=== PATIENT | male | born 1945 | race Caucasian/White ===

== ENCOUNTER 2019-04-23 05:57 | Day surgery (SDC) | payer OTHER, SELFPAY ==
[2019-04-23 06:19] VITALS: BP 128/90; PULSE 82; RESP 18; TEMP 36.7; O2SAT 95
[2019-04-23] MEDS: Lactated Ringers 1,000 ML 80 ML IV (06:28)
[2019-04-23] MEDS: CLINDAMYCIN 600 MG/50 ML BAG 100 MG IVPB (07:27)
[2019-04-23] MEDS: Bupivacaine 0.5% Pres-Free 30 ML VIAL (07:31)
[2019-04-23] MEDS: Lidocaine 1% Multi-Dose 50 ML VIAL (07:31)
[2019-04-23] MEDS: Dexamethasone 4 MG/ML VIAL (07:51)
--- NOTE | 2019-04-23 08:06 | PDOC.DSDIS_ITS ---
Discharge Plan Disposition Patient Disposition: HOME Condition: Good Discharge Details Attending Provider: Eloy Renee Primary Care Provider: None,None Home Meds and New Rx's Prescriptions: Continued budesonide 32 mcg/actuation [place],Non-Aerosol 1 spray INTRANASAL DAILY RF: 0 aspirin 325 mg Tablet 325 mg PO DAILY RF: 0 omeprazole 40 mg Capsule,Delayed Release(Dr/Ec) 40 mg PO DAILY RF: 0 amlodipine 10 mg Tablet 10 mg PO DAILY RF: 0 simvastatin 20 mg Tablet 20 mg PO QPM RF: 0 Calcium 600 + D(3) 600 mg calcium- 200 unit Capsule 1 cap PO DAILY RF: 0 Centrum Silver Men 300-600-300 mcg Tablet 1 tab PO DAILY RF: 0 Discharge Instructions Activity:: Elevate Remove Dressings/Wound Care:: Do Not Remove Shower/Bathe:: Cover Diet:: As Tolerated Discharge Orders Discharge Orders: Discharge Order (Routine); Ordered 04/23/19 Ordered By: Eloy Renee DS: Diagnosis Discharge Diagnosis (1) Hammertoe of second toe of right foot: Status: Acute
[2019-04-23 08:20] VITALS: BP 117/82; PULSE 78; RESP 16; TEMP 36.6; O2SAT 96
[2019-04-23 08:58] VITALS: RESP 16
--- NOTE | 2019-04-23 09:48 | ROE_ITS ---
DATE OF PROCEDURE: April 23, 2019 PREOPERATIVE DIAGNOSIS: Symptomatic right second hammertoe deformity status post previous surgical i nterventions of arthrodesis. POSTOPERATIVE DIAGNOSIS: Same. PROCEDURE: Amputation through the proximal phalanx right second toe. ANESTHESIA: Monitored Anesthesia Care with local block of the second toe utilizing 6 cc's of 50/50 m ixture 1% Lidocaine plain, 0.5% Bupivacaine. SURGEON: Eloy Renee D.P.M. OPERATIVE INDICATIONS: 74-year-old male who had previously undergone arthrodesis of the right second toe at the DIPJ level utilizing a screw. He had developed apparently postoperative complications, h ardware was removed, but the tip of the toe remained exquisitely painful. He's lived with this for a long time, but has reached the point he can no longer wear shoes or ambulate comfortably and he is s eeking a permanent solution to this chronic problem. He was given the option of revision arthroplast y arthrodesis of the digits, but he has opted for an amputation of the toe. Informed consent has bee n obtained. All questions have been answered. He is fully aware of the permanency of the procedure. REPORT OF OPERATION: Fran was brought to the operative suite, placed in the supine position. The r ight foot was prepped and draped in the usual sterile podiatric fashion. Anesthesia being obtained, the right foot was exsanguinated, a well-padded ankle tourniquet inflated 250 mmHg. Attention was directed to the right second toe. Dorsal and plantar flaps were raised so as to afford an amputation. The dorsal flap was raised. The extensor tendon was incised and retracted proximall y. Fusion at the PIPJ level was also noted. The incision is carried down plantarly to complete the plantar flap and the amputation. At this time double-action bone-cutting forceps are used to cut th rough the bone just proximal to the PIPJ. The distal portion of the toe was removed. All rough and bony edges were rasped smooth. Copious irrigation was performed. The extensor flexor tendons were r epaired over the bone stump end-to-end with #3-0 Vicryl and the skin flaps were repaired with simple interrupted suture #4-0 Nylon, as well as a couple of lwa-zppk-djti-far suture for a nice approximati on without any undue tension. Four milligrams of dexamethasone phosphate was infused into the wound. Xeroform, gauze fluff compression dressings were applied. The tourniquet was released at fourteen minutes, vascularity returned to the foot without complication. The patient left the OR with vital s igns stable, vascular status intact. Sharp and sponge counts were correct. He will be followed by bo corado in the office next week. cc: Amadeo Glass M.D.
== END 2019-04-23 09:07 | disposition home or self-care (01) ==
PROVIDERS: Visit Provider Podiatrist
PROC: (CPT 28825; principal; 2019-04-23 07:30)
DX: M20.41 Other hammer toe(s) (acquired), right foot (principal); M96.89 Other intraoperative and postprocedural complications and disorders of the musculoskeletal system; M79.674 Pain in right toe(s); Z98.1 Arthrodesis status; Y83.8 Other surgical procedures as the cause of abnormal reaction of the patient, or of later complication, without mention of misadventure at the time of the procedure; I25.10 Atherosclerotic heart disease of native coronary artery without angina pectoris
CPT/HCPCS: 28825; J1100

== ENCOUNTER 2019-05-28 07:15 | Day surgery (SDC) | payer OTHER, SELFPAY ==
[2019-05-28 07:32] VITALS: BP 112/74; PULSE 82; RESP 18; TEMP 36.7; O2SAT 98
[2019-05-28] MEDS: Lactated Ringers 1,000 ML 80 ML IV (07:52)
[2019-05-28] MEDS: CLINDAMYCIN 600 MG/50 ML BAG 100 MG IVPB (09:15)
[2019-05-28] MEDS: Lidocaine 1% Multi-Dose 50 ML VIAL (09:18)
[2019-05-28] MEDS: Bupivacaine 0.5% Pres-Free 30 ML VIAL (09:18)
[2019-05-28] MEDS: Dexamethasone 4 MG/ML VIAL (10:02)
--- NOTE | 2019-05-28 10:09 | W.PM.DSUDISC ---
Discharge Plan Disposition Patient Disposition: HOME Condition: Good Discharge Details Reason For Visit: removal hardware right great toe Attending Provider: Eloy Renee Primary Care Provider: Amadeo Glass [place] Meds and New Rx's Prescriptions: No Action budesonide 32 mcg/actuation [place],Non-Aerosol 1 spray INTRANASAL DAILY RF: 0 aspirin 325 mg Tablet 325 mg PO DAILY RF: 0 omeprazole 40 mg Capsule,Delayed Release(Dr/Ec) 40 mg PO DAILY RF: 0 amlodipine 10 mg Tablet 10 mg PO DAILY RF: 0 simvastatin 20 mg Tablet 20 mg PO QPM RF: 0 Calcium 600 + D(3) 600 mg calcium- 200 unit Capsule 1 cap PO DAILY RF: 0 Centrum Silver Men 300-600-300 mcg Tablet 1 tab PO DAILY RF: 0 Discharge Instructions Activity:: Activity as Tolerated Remove Dressings/Wound Care:: Do Not Remove Shower/Bathe:: Cover Diet:: Normal Diet Discharge Orders Discharge Orders: Discharge Order (Routine); Ordered 05/28/19 Ordered By: Eloy Renee DS: Diagnosis Discharge Diagnosis (1) Painful orthopaedic hardware: Start date: 05/28/19 Start time: 10:11 Status: Acute
--- NOTE | 2019-05-28 10:12 | PDOC.DSDIS_ITS ---
Discharge Plan Disposition Patient Disposition: HOME Condition: Good Discharge Details Reason For Visit: removal hardware right great toe Attending Provider: Eloy Renee Primary Care Provider: Amadeo Glass [place] Meds and New Rx's Prescriptions: No Action budesonide 32 mcg/actuation [place],Non-Aerosol 1 spray INTRANASAL DAILY RF: 0 aspirin 325 mg Tablet 325 mg PO DAILY RF: 0 omeprazole 40 mg Capsule,Delayed Release(Dr/Ec) 40 mg PO DAILY RF: 0 amlodipine 10 mg Tablet 10 mg PO DAILY RF: 0 simvastatin 20 mg Tablet 20 mg PO QPM RF: 0 Calcium 600 + D(3) 600 mg calcium- 200 unit Capsule 1 cap PO DAILY RF: 0 Centrum Silver Men 300-600-300 mcg Tablet 1 tab PO DAILY RF: 0 Discharge Instructions Activity:: Activity as Tolerated Remove Dressings/Wound Care:: Do Not Remove Shower/Bathe:: Cover Diet:: Normal Diet Discharge Orders Discharge Orders: Discharge Order (Routine); Ordered 05/28/19 Ordered By: Eloy Renee DS: Diagnosis Discharge Diagnosis (1) Painful orthopaedic hardware: Status: Acute
[2019-05-28 10:46] VITALS: BP 103/67; PULSE 68; RESP 16; TEMP 36.6; O2SAT 100
--- NOTE | 2019-05-28 12:18 | ROE_ITS ---
DATE OF PROCEDURE: May 28, 2019 PREOPERATIVE DIAGNOSIS: Symptomatic hardware right first and third toes. POSTOPERATIVE DIAGNOSIS: Same. PROCEDURE: 1. Removal of hardware from the right great toe. 2. Failure to remove second screw from the right great toe and right third toe. SURGEON: Lisset SheehanPLang. ANESTHESIA: General anesthesia administered by Kelly Chow CRNA with local blocks of the first and third toes utilizing 10 cc's 50:50 mixture 1% Lidocaine plain, 0.5% Marcaine plain. OPERATIVE INDICATIONS: Fran is a 74-year-old white male who is experiencing pain due to loosening of a screw at the tip of his right great toe. It's been increasingly uncomfortable; it's beginning to poke through the skin and wants it out. He did make a request that while we were there, if we could remove all the hardware to avoid future interventions that would be his preference. He understands risks and complications of surgery pertaining to pain, scarring, infection, wound dehiscence, inability to remove the hardware, fracture of the toe, ongoing discomfort potentially requiring revisional procedures. Informed consent has been obtained. No promises made to the final outcome of surgery. REPORT OF OPERATION: Fran was brought to the operative suite, placed in the supine position. A time-out was obtained. Team agreed on patient, site, allergies. The right foot was then prepped and draped in the usual sterile podiatric fashion. The right foot was exsanguinated. A well-padded ankle tourniquet inflated 250 mmHg. Anesthesia being obtained, the ankle tourniquet was inflated 250 mmHg. Attention was directed to the right great toe. A fishmouth incision was made at the tip of the toe. The incision was deepened and the screws were immediately identified at the tip and distal medial aspect of the toe. The screw coming out from the distal medial aspect of the great toe had backed out from its original position; it was a little proud and this clearly was a problematic screw for him. The original screw set we obtained from recommendation of his previous surgeon's hospital was incorrect. Fortunately the [employer] screw set, the 2.7 and 3.5 hog driver fit the screw. It was easily inserted and this screw came out with no difficulty. When I went to remove the larger, heavier screw in the central portion of the great toe, it was noted immediately that it is stripped. The screwdriver head went into the hole but there was absolutely no purchase. I did try some gentle compression, a little tapping, to try and create some new purchase edge, but it was not successful. The screw head is noted to be quite flat onto the bone and/or the bone has overgrown along the edges. It was in a good position and I decided it was not his primary cause of pain and that we would just create more difficulty for him trying to remove it. The wound was subsequently copiously irrigated and the incision was closed with simple interrupted suture #3-0 Nylon. Attention was now directed to his right third toe. A fishmouth incision was made over this digit. Dissection was carried down to the tip of the distal phalanx and the screw was encountered. Unfortunately this screw was also stripped. The bone is firmly embedded around the screw head. I did rongeur this off. I used a small osteotome and freed up the edge, but there was absolutely no airplane pilot photogrammetry with the screwdriver. The head is stripped. There was no purchase on the edge of the screw to put needle-nosed pliers to assist in backing this screw out. I decided, since this was not his primary complaint, that we would only do more harm; the potential for fracturing the toe was significant; the concept of over-drilling to remove this screw would have eliminated most of his distal phalanx, a good part of the middle and proximal phalanx, and I felt it was not worth the risk and comorbidities. So based on that, we irrigated this wound and closed it with #3-0 Nylon, simple interrupted suture. Four milligrams of dexamethasone phosphate was infused equally between the two toes. Xeroform was applied, followed by gauze fluff compression dressings. The tourniquet was released at forty minutes with vascularity returning immediately to all toes. Fran left the OR with vital signs stable, vascular status intact. Sharp and sponges counts were correct. Note: A [employer] style 2.7?3.5 screwdriver was to correct instrument for the screws.
== END 2019-05-28 11:10 | disposition home or self-care (01) ==
PROVIDERS: PCP Family Medicine; Visit Provider Podiatrist
PROC: (CPT 20680; principal; 2019-05-28 09:00)
DX: T84.84XA Pain due to internal orthopedic prosthetic devices, implants and grafts, initial encounter (principal); T84.223A Displacement of internal fixation device of bones of foot and toes, initial encounter; M79.671 Pain in right foot
CPT/HCPCS: 20680; J1100; J1885

== ENCOUNTER 2019-10-14 16:04 | Outpatient (REF) | payer OTHER, SELFPAY | END 2019-10-14 16:24 | LOC: LBN 16:04 | PROVIDERS: PCP Family Medicine; Visit Provider Podiatrist | DX: L02.611 Cutaneous abscess of right foot (principal); M86.171 Other acute osteomyelitis, right ankle and foot | CPT/HCPCS: 87077; 87070; 87186; 87205 ==

== ENCOUNTER 2019-10-20 10:47 | Day surgery (SDC) | payer OTHER, SELFPAY ==
[2019-10-20 11:00] VITALS: BP 121/79; PULSE 80; RESP 16; TEMP 36.6; O2SAT 97
[2019-10-20] MEDS: Lactated Ringers 1,000 ML 80 ML IV (11:45)
--- NOTE | 2019-10-20 12:08 | W.PM.HP.N ---
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, impotence Hypertension (Chronic) Myocardial infarction (Chronic) 2003 Obesity (Chronic) Plantar fascial fibromatosis (Acute) Surgical History History of angioplasty (Acute) Cardiac stent x 2 Hx of appendectomy (Chronic) Incisional hernia repair 1 year later Hx of colonoscopy (Chronic) Hx of inguinal hernia repair (Acute) Hx of total knee arthroplasty (Acute) Right & Left 2008, Revision Right 2013 Hx of ventral hernia repair (Acute) Social History Smoking/Tobacco Use Status: Former Tobacco Use Quit Date: 11/03/02 Alcohol Intake: never Drug use: Never Substance use type: does not use Do you feel safe at home: Yes Do you feel safe in your relationship?: Yes Meds Home Medications and Allergies Home Medications Medication Instructions Recorded Confirmed Type Calcium 600 + D(3) 1 cap PO DAILY 04/20/19 10/20/19 History Centrum Silver Men 1 tab PO DAILY 04/20/19 10/20/19 History amlodipine 10 mg PO DAILY 04/20/19 10/20/19 History aspirin 325 mg PO QHS 04/20/19 10/20/19 History budesonide 1 spray INTRANASAL DAILY 04/20/19 10/20/19 History omeprazole 40 mg PO DAILY 04/20/19 10/20/19 History simvastatin 20 mg PO QPM 04/20/19 10/20/19 History Allergies Allergy/AdvReac Type Severity Reaction Status Date / Time Penicillins Allergy Severe Hives Verified 10/20/19 11:21 sulfamethoxazole Allergy Intermediate Skin Rash Verified 10/20/19 11:21 [From Bactrim] trimethoprim [From Bactrim] Allergy Intermediate Skin Rash Verified 10/20/19 11:21 erythromycin base AdvReac Intermediate GI upset Verified 10/20/19 11:21 Exam Const General: cooperative, healthy appearing and comfortable [facility] Head: normal to inspection Ears: hearing grossly normal bilaterally Face and sinus: face symmetric Mouth: oral mucosae normal Throat: uvula midline Eyes General: appearance normal, both eyes and all related structures Pupils: PERRL EOM: EOM intact bilaterally Resp Effort & Inspection: normal respiratory effort Auscultation: clear to auscultation bilaterally Cardio Jugular venous pressure: no JVD Rate: regular rate Rhythm: regular rhythm Pulses: normal peripheral pulses Neuro General: alert, awake and oriented x3 Cognition: normal cognition Speech: speech normal Gait: normal gait Motor: muscle tone normal throughout Extrem Other: abcess right grat toe with local erythema Results Last Vital Signs Temp 36.6 C 10/20/19 11:00 Pulse 80 10/20/19 11:00 Resp 16 10/20/19 11:00 BP 121/79 10/20/19 11:00 Pulse Ox 97 10/20/19 11:00
--- NOTE | 2019-10-20 12:22 | W.PM.HP.N ---
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, impotence Hypertension (Chronic) Myocardial infarction (Chronic) 2003 Obesity (Chronic) Plantar fascial fibromatosis (Acute) Surgical History History of angioplasty (Acute) Cardiac stent x 2 Hx of appendectomy (Chronic) Incisional hernia repair 1 year later Hx of colonoscopy (Chronic) Hx of inguinal hernia repair (Acute) Hx of total knee arthroplasty (Acute) Right & Left 2008, Revision Right 2013 Hx of ventral hernia repair (Acute) Social History Smoking/Tobacco Use Status: Former Tobacco Use Quit Date: 11/03/02 Alcohol Intake: never Drug use: Never Substance use type: does not use Do you feel safe at home: Yes Do you feel safe in your relationship?: Yes Meds Home Medications and Allergies Home Medications Medication Instructions Recorded Confirmed Type Calcium 600 + D(3) 1 cap PO DAILY 04/20/19 10/20/19 History Centrum Silver Men 1 tab PO DAILY 04/20/19 10/20/19 History amlodipine 10 mg PO DAILY 04/20/19 10/20/19 History aspirin 325 mg PO QHS 04/20/19 10/20/19 History budesonide 1 spray INTRANASAL DAILY 04/20/19 10/20/19 History omeprazole 40 mg PO DAILY 04/20/19 10/20/19 History simvastatin 20 mg PO QPM 04/20/19 10/20/19 History Allergies Allergy/AdvReac Type Severity Reaction Status Date / Time Penicillins Allergy Severe Hives Verified 10/20/19 11:21 sulfamethoxazole Allergy Intermediate Skin Rash Verified 10/20/19 11:21 [From Bactrim] trimethoprim [From Bactrim] Allergy Intermediate Skin Rash Verified 10/20/19 11:21 erythromycin base AdvReac Intermediate GI upset Verified 10/20/19 11:21 Exam Narrative Exam Narrative: plan: Takre to OR for debridement of infected tissue right hallux. Results Last Vital Signs Temp 36.6 C 10/20/19 11:00 Pulse 80 10/20/19 11:00 Resp 16 10/20/19 11:00 BP 121/79 10/20/19 11:00 Pulse Ox 97 10/20/19 11:00
[2019-10-20] MEDS: cefTRIAXone 2 GM/50 ML BAG IVPB (12:26)
--- NOTE | 2019-10-20 12:51 | BONE_PTH ---
PATIENT: Fran Poole LOC: [facility] U#:[id number] AGE/SX: 74/M ROOM: RE10/20/[address]: Eloy Renee : 1945 BED: DIS: 10/20/2019 SPEC #: [id number] RECD: 10/21/19 12:50 STATUS: BETTY REQ #: [id number] CHAD: 10/20/19 12:[address]: Eloy Renee DEPT: Surgical Specimen RECD BY: Radha Vyas ENTERED: 10/21/19 12:51 SP TYPE: Bone OTHR DR: Amadeo Glass Tissues: 1 - BONE BX/CURRETTE NOT PATH FRACTURE Procedures: GROSS AND MICRO LEVEL 5 Comments: [id number]
[2019-10-20] MEDS: Bupivacaine 0.5% Pres-Free 30 ML VIAL (12:52)
[2019-10-20] MEDS: Lidocaine 1% Pres-Free 5 ML VIAL (12:53)
--- NOTE | 2019-10-20 13:24 | W.PM.DSUDISC ---
Discharge Plan Disposition Patient Disposition: HOME Condition: Good Discharge Details Reason For Visit: ABCSESS (R) HALLUX,OSTEOMYELITIS (R) Attending Provider: Eloy Renee Primary Care Provider: Amadeo Glass [place] Meds and New Rx's Prescriptions: No Action budesonide 32 mcg/actuation [place],Non-Aerosol 1 spray INTRANASAL DAILY RF: 0 aspirin 325 mg Tablet 325 mg PO QHS RF: 0 omeprazole 40 mg Capsule,Delayed Release(Dr/Ec) 40 mg PO DAILY RF: 0 amlodipine 10 mg Tablet 10 mg PO DAILY RF: 0 simvastatin 20 mg Tablet 20 mg PO QPM RF: 0 Calcium 600 + D(3) 600 mg calcium- 200 unit Capsule 1 cap PO DAILY RF: 0 Centrum Silver Men 300-600-300 mcg Tablet 1 tab PO DAILY RF: 0 Discharge Instructions Activity:: Elevate Remove Dressings/Wound Care:: Do Not Remove Shower/Bathe:: Cover Diet:: Normal Diet Discharge Orders Discharge Orders: Discharge Order (Routine); Ordered 10/20/19 Ordered By: Eloy Renee DS: Diagnosis Discharge Diagnosis (1) Osteomyelitis of ankle or foot, right, acute: Status: Acute
[2019-10-20 13:55] VITALS: BP 123/66; PULSE 70; RESP 18; TEMP 36.5; O2SAT 96
--- NOTE | 2019-10-21 06:39 | ROE_ITS ---
REPORT OF OPERATIVE PROCEDURE DATE OF PROCEDURE October 20, 2019 PREOPERATIVE DIAGNOSES Abscess right great toe with osteomyelitis. POSTOPERATIVE DIAGNOSES Abscess right great toe with osteomyelitis. PROCEDURE Debridement right great toe including bone with removal of retained screw. ANESTHESIA Monitored Anesthesia Care with local block of the great toe utilizing 10 cc 50/50 mixture 1% lidocain e plain 0.5% Marcaine plain. ANESTHESIA PROVIDER Benigno Da Silva CRNA OPERATIVE INDICATIONS A 73-year-old white male who developed pain, swelling, erythema, pus, cellulitis in his right great t oe. There is a retained screw within that toe from previous surgeries. He is being brought to the OR for incision and drainage, debridement of the wound, removal of the retained screw. He understands th e risks and complications of surgery pertaining to pain, scarring, infection, ongoing infection in sp ite of aggressive debridement and planned IV antibiotics. The potential loss of the great toe has bee n discussed. All questions have been answered, informed consent has been obtained. No promises are ma de to final outcome of surgery. REPORT OF OPERATION Fran was brought to the Operative Suite, placed in the supine position, where the right foot was pre pped and draped in the usual sterile podiatric fashion. Timeout was performed. Attention was now dir ected to the right great toe. The right foot was exsanguinated and an ankle tourniquet inflated to 15 0 mmHg. Attention was directed to the right great toe where fishmouth incision was placed distally ov er the toe. Dorsal and plantar flaps were raised. No jared purulence was identified, but a small Sinu s tract was appreciated from the distal medial aspect of the incision, this was excised in total. The soft tissue was released on the distal aspect of the phalanx. The screw was immediately noted. I was able to chip away some bone from the distal tip around the screw. These bone pieces were sent out fo r culture, as well to Pathology. Once the head was exposed, I put a vise intake specialist onto the screw and was able to back it out without difficulty. A freer elevator was then used and the screw hole was gently curettaged. Once again, I did not see jared purulent matter down through this region. The remaining b one appeared firm, hard, looked viable. I did some additional debridement around the soft tissue eladio ulking the tip of the toes somewhat, copiously irrigated the wound and closed it primarily with a far -near near-far suture technique #3-0 Nylon interspersed with simple interrupted suture #3-0 Nylon. Th e incision was closed loosely so as to allow drainage. Xeroform gauze fluff, compression dressings we re applied. Tourniquet was released with vascularity returning immediately to all toes. Fran left the OR with vital signs stable, vascular status intact. Sharp and sponge counts were corre ct. He will be followed by myself in the office in the upcoming days. I will arrange for IV outpatient in fusion at [facility]. He will receive 2 grams of Rocephin, anticipate 6 weeks. Cultures t hat were obtained last week from the deep tissue abscess grew out a Methicillin-sensitive Staphylococ cus aureus. CC: Amadeo Glass M.D.
== END 2019-10-20 14:19 | disposition home or self-care (01) ==
PROVIDERS: PCP Family Medicine; Visit Provider Podiatrist
PROC: (CPT 11044; principal; 2019-10-20 12:00)
DX: L02.611 Cutaneous abscess of right foot (principal); B95.7 Other staphylococcus as the cause of diseases classified elsewhere; Z16.29 Resistance to other single specified antibiotic; M86.671 Other chronic osteomyelitis, right ankle and foot; K21.9 Gastro-esophageal reflux disease without esophagitis; I10 Essential (primary) hypertension; Z88.0 Allergy status to penicillin
CPT/HCPCS: 11044; 20680; 87070; 87077; 99219; 99235; 87075; 87186; 87205; 88304; 88307; J1885

== ENCOUNTER 2021-05-25 08:12 | Day surgery (SDC) | payer OTHER, SELFPAY ==
[2021-05-25 08:16] VITALS: BP 136/89; PULSE 75; RESP 16; TEMP 36.3; O2SAT 98
[2021-05-25] MEDS: Lactated Ringers 1,000 ML 80 ML IV (08:59)
[2021-05-25] MEDS: CLINDAMYCIN 300 MG/50 ML BAG 100 MG IVPB (10:51)
[2021-05-25] MEDS: Bupivacaine 0.5% Pres-Free 30 ML VIAL (11:00)
--- NOTE | 2021-05-25 11:20 | W.PM.DSUDISC ---
Discharge Plan Disposition Patient Disposition: HOME Condition: Good Discharge Details Reason For Visit: removal hardware right foot Attending Provider: Eloy Renee Primary Care Provider: Amadeo Glass [place] Meds and New Rx's Prescriptions: No Action budesonide 32 mcg/actuation [place],Non-Aerosol 1 spray INTRANASAL DAILY RF: 0 aspirin 325 mg Tablet 325 mg PO QHS RF: 0 omeprazole 40 mg Capsule,Delayed Release(Dr/Ec) 40 mg PO DAILY RF: 0 amlodipine 10 mg Tablet 10 mg PO DAILY RF: 0 simvastatin 20 mg Tablet 20 mg PO QPM RF: 0 Calcium 600 + D(3) 600 mg calcium- 200 unit Capsule 1 cap PO DAILY RF: 0 Centrum Silver Men 300-600-300 mcg Tablet 1 tab PO DAILY RF: 0 Discharge Instructions Activity:: Elevate Remove Dressings/Wound Care:: Do Not Remove Shower/Bathe:: Cover Diet:: Normal Diet Discharge Orders Discharge Orders: Discharge Order (Routine); Ordered 05/25/21 Ordered By: Eloy Renee DS: Diagnosis Discharge Diagnosis (1) Painful orthopaedic hardware: Status: Acute
[2021-05-25 11:24] VITALS: BP 150/87; PULSE 69; RESP 16; TEMP 36.4; O2SAT 99
--- NOTE | 2021-05-25 11:25 | W.PM.OP ---
Date of service: 05/25/21 Time of Service: 11:25 Operative Note Operative Note DATE OF PROCEDURE: 05/25/21 PRE-OP DIAGNOSIS: symptomatic hardware right 5th metatarsal POST-OP DIAGNOSIS: same PROCEDURE: removal hardware SURGEON: Eloy Renee ANESTHESIA TYPE: Local By Surgeon Refer to Anesthesia Record ESTIMATED BLOOD LOSS: 0 PATHOLOGY: none sent COMPLICATIONS: None Patient was transported to: same day Patient's condition: stable Findings: 76 YO male with pain associatated with a retaines screw located in the neck of the 5th metatarsal. Pain is expperienced while in shoe gear and any pressure over the affected area. Procedure Description: Fran was brought into the surgical suite, placed into the supine position and the thr right foot prepped and draped in the usual podiatric fashion. 4cc of 1% Lidocaine with epi and 0.5 % Marcaine plain was infused over the affected region. A 1cm incision was made over the screw and sharp/blunt dissection performed down to the screw head. The head was cleared of ST with a dental pick and the screw was removed without difficulty. The wound was irrigated with NS and Closed with a horizontal suture of 4.0 Nylon. Xeroform, fluff, gauze dressings applied. He left the OR with VVs, vascular status intact and will be followed by myself next week.
== END 2021-05-25 11:50 | disposition home or self-care (01) ==
PROVIDERS: PCP Family Medicine; Visit Provider Podiatrist
PROC: (CPT 20680; principal; 2021-05-25 09:30)
DX: T84.84XA Pain due to internal orthopedic prosthetic devices, implants and grafts, initial encounter (principal)
CPT/HCPCS: 20680

== ENCOUNTER 2023-03-03 06:55 | Day surgery (SDC) | payer MEDICARE, SELFPAY ==
[2023-03-03 07:23] VITALS: BP 133/88; PULSE 80; RESP 17; TEMP 36.3; O2SAT 98
[2023-03-03] MEDS: Tropicam./Phenyleph. (1/2.5%) 5 ML BTL OD ×3 (07:23→07:35)
--- NOTE | 2023-03-03 07:44 | ANES.PREOP_ITS ---
General Info Date of Service Date Performed: 03/03/23 Height: 6 ft Weight: 117 kg Body Mass Index (BMI): 34.9 Surgical Procedure: Operation Date: 03/03/23 08:25 Proposed Procedure Side Surgeon p Cataract Extraction with IOL Implant Right Rick Roberson MD Meds Allergies and Home Medications Allergies Allergy/AdvReac Type Severity Reaction Status Date / Time Penicillins Allergy Severe Hives Verified 03/03/23 07:20 sulfamethoxazole Allergy Intermediate Skin Rash Verified 03/03/23 07:20 [From Bactrim] trimethoprim [From Bactrim] Allergy Intermediate Skin Rash Verified 03/03/23 07:20 erythromycin base AdvReac Intermediate GI upset Verified 03/03/23 07:20 Home Medication Medication Instructions Recorded amlodipine 10 mg tablet 10 mg PO HS 04/20/19 aspirin 325 mg tablet 325 mg PO DAILY 04/20/19 calcium carbonate 600 mg-vitamin 1 cap PO DAILY 04/20/19 D3 5 mcg (200 unit) capsule (Calcium 600 + D(3)) olucjksw-flo-rmklw acid 300 1 tab PO DAILY 04/20/19 mcg-lycopene 600 mcg-lutein 300 mcg tablet (Centrum Silver Men) omeprazole 40 mg capsule,delayed 40 mg PO DAILY 04/20/19 release simvastatin 20 mg tablet 20 mg PO QPM 04/20/19 clindamycin HCl 300 mg capsule 300 mg PO ONCE 07/30/22 Current Visit Medications: Current Medications Generic Name Dose Route Start Last Admin Trade Name Freq PRN Reason Stop Dose Admin Acetaminophen 1,000 mg 03/03/23 06:00 Acetaminophen 500 Mg Tab PO Q4H PRN PRN Miscellaneous Medication 0 ml 03/03/23 06:00 03/03/23 07:35 Tropicam./Phenyleph. (1/2.5%) 5 Ml Btl OD 1 drp DIRECTED MARIELLE Administration Miscellaneous Medication 0 ml 03/03/23 06:00 Prednisolone 1%, Moxifloxacin 0.5%, Nepafenac 0.1% 5ml Btl OD DIRECTED MARIELLE Tetracaine HCl 0 ml 03/03/23 06:00 Tetracaine 0.5% 4 Ml Btl OD DIRECTED MARIELLE PFSH Active Problems Active Problems: Problem Status Onset Code Cortical age-related cataract, right eye H25.011 Nuclear age-related cataract, right eye H25.11 Hx of appendectomy Z90.49 Hammertoe of second toe of right foot M20.41 Painful orthopaedic hardware T84.84XA Osteomyelitis of ankle or foot, right, acute M86.171 Post-nasal drip R09.82 Allergy, unspecified, initial encounter T78.40XA Dental decay K02.9 Chronic nasal congestion R09.81 Deviated nasal septum J34.2 Hypertrophy of nasal turbinates J34.3 Nail dystrophy L60.3 Medical History Medical History Actinic keratitis Arthritis Chronic sinusitis Coronary artery disease GERD (gastroesophageal reflux disease) Hammer toes, bilateral Repair Headache High cholesterol History of psychosexual disorder Associated with inhibited libido, impotence Hypertension Myocardial infarction 2002, stents x 2; [place], [place] Mid- and proximal RCA F/U with PCP Obesity Plantar fascial fibromatosis Surgical History Surgical History History of angioplasty Cardiac stent x 2 Hx of colonoscopy Hx of inguinal hernia repair Hx of total knee arthroplasty Right & Left 2008, Revision Right 2014 Hx of ventral hernia repair Tobacco Smoking/Tobacco Use Status: Former Tobacco Use Alcohol Alcohol Intake: never Substance Use Substance use: Never Substance use type: does not use Vital Signs and Lab Results Vital Signs Most Recent Vital Signs in EMR: Most Recent Vital Signs Temp Pulse Resp BP Pulse Ox 36.3 C L 80 17 133/88 98 03/03/23 07:23 03/03/23 07:23 03/03/23 07:23 03/03/23 07:23 03/03/23 07:23 Lab Results Blood Type / Crossmatch: No Data to Display Complete Blood Count: No Data to Display Complete Metabolic Panel: No Data to Display Liver Function Panel: No Data to Display Coagulation Panel: No Data to Display Cardiac Panel: No Data to Display Arterial Blood Gas: 2 No Data to Display Venous Blood Gas: No Data to Display Pancreas Panel: No Data to Display Thyroid Panel: No Data to Display Infectious Disease: No Data to Display Blood Cultures: No Data to Display Toxicology Panel: No Data to Display Anesthesia Assessment and Plan Anesthesia History Personal History: No History of Anesthesia Complications Family History: No Family History of Anesthesia Complications Exercise Tolerance Exercise Tolerance: Metabolic Equivalents>4 Cardiac & Pulmonary Exam Cardiac Exam: Normal S1/S2 Heart Sounds Pulmonary Exam: Clear Bilateral Breath Sounds Implantable Cardiac Device Does patient have a Pacemaker or an ICD?: No Airway Exam Known Difficult Airway: No Mallampati Class: 2 Mouth Opening: Normal (> 3cm) Thyromental Distance: Greater than 3 cm Neck Range of Motion: Limited ROM Neck Circumference: Normal Teeth Condition: Removable Dentures/Plates Upper and Removable Dentures/Plates Lower ASA Classification ASA Score: ASA 2 Emergency Case?: No NPO Status NPO Status: NPO Clears >2 hours, Solids >8 hours Anesthesia Plan Resuscitation Status: Full Code Anesthesia Technique: MAC Anesthesia Airway Planned: Natural Airway Monitors Used: Standard Monitors Preoperative Comments:: Stentsx2 2002.[place] Has f/u here. No current issues. Wants MKO
[2023-03-03 07:57] VITALS: BMI 34.9
[2023-03-03] MEDS: Tetracaine 0.5% 4 ML BTL OD (08:11)
[2023-03-03] MEDS: Povidone-Iodine Ophth 30 ML BTL (08:11)
[2023-03-03] MEDS: Duovisc Viscoelastic System EACH 1 EACH (08:17)
[2023-03-03] MEDS: Phenylephrine/Lidocaine (15/10) MG/ML 1 ML VIAL (08:18)
[2023-03-03] MEDS: Lidocaine 1% Pres-Free 5 ML VIAL (08:18)
[2023-03-03 08:36] VITALS: BP 126/81; PULSE 74; RESP 18; TEMP 36.2; O2SAT 95
--- NOTE | 2023-03-03 08:37 | W.PM.DSUDISC ---
Date of service: 03/03/23 Time of Service: 08:37 Discharge Plan Disposition Patient Disposition: Home Discharge Details Attending Provider: Rick Roberson Primary Care Provider: Amadeo Glass [facility] and New Rx's Prescriptions: No Action clindamycin HCl 300 mg capsule 300 mg PO ONCE Rx Instructions: take prior to dental visit. aspirin 325 mg Tablet 325 mg PO DAILY omeprazole 40 mg Capsule,Delayed Release(Dr/Ec) 40 mg PO DAILY amlodipine 10 mg Tablet 10 mg PO HS simvastatin 20 mg Tablet 20 mg PO QPM Calcium 600 + D(3) 600 mg calcium- 200 unit Capsule 1 cap PO DAILY Centrum Silver Men 300-600-300 mcg Tablet 1 tab PO DAILY Discharge Instructions Stand Alone Forms: Post-op Topical Cataract, Bronwyn Berkowitz (DSU) Discharge Orders Discharge Orders: Discharge Order (Routine); Ordered 03/03/23 Ordered By: Rick Roberson DS: Diagnosis Discharge Diagnosis (1) Cortical age-related cataract, right eye: Status: Resolved (2) Nuclear age-related cataract, right eye: Status: Resolved
--- NOTE | 2023-03-03 08:39 | W.PM.OP ---
Date of service: 03/03/23 Time of Service: 08:39 Operative Note Operative Note DATE OF PROCEDURE: 03/03/23 PRE-OP DIAGNOSIS: Nuclear/cortical cataract, right eye POST-OP DIAGNOSIS: same PROCEDURE: Cataract extraction using phacoemulsification with intraocular lens implant, right eye SURGEON: Rick Roberson ANESTHESIA TYPE: Local By Surgeon and MAC Refer to Anesthesia Record ESTIMATED BLOOD LOSS: 0 PATHOLOGY: none sent COMPLICATIONS: None Patient was transported to: same day Patient's condition: stable Implants: Hiro Clareon [id number] Indications: Progressive decreased vision due to cataract, right eye Findings: Pseudoexfoliation, right eye Procedure Description: CATARACT SURGERY OPERATIVE REPORT PREOPERATIVE DIAGNOSIS: Nuclear/cortical cataract, right eye POSTOPERATIVE DIAGNOSIS: Same OPERATION: Cataract extraction using phacoemulsification with posterior chamber intraocular lens implant, right eye. IOL: IOL Security Guard Supervisor/Model: Hiro Clareon [id number] IOL Power: + 21.5 diopters IOL Serial Number: [id number] Optic Diameter: 6.0mm Haptic/Overall Diameter: 13.0mm PHACO INFO: Hiro [employer].comurion Vision System with OZil and Active Fluidics Cumulative Dispersed Energy (CDE): 5.20 seconds SURGEON: Rick Roberson MD, VIJAY ANESTHESIA: Monitored Anesthesia Care (MAC), with local sub-tenon's anesthetic infiltration COMPLICATIONS: None SPECIMENS: None INDICATIONS FOR PROCEDURE: The patient is a 78-year-old gentleman with history of diminished visual acuity in his right eye secondary to the development of nuclear/cortical cataract. The option of cataract surgery was offered to the patient and he felt he was symptomatic enough that he wished to proceed. See office notes for detailed information. PROCEDURE: The correct surgical eye was identified and marked as the right eye and the pupil was dilated in the preoperative area using mydriatics and cycloplegics. The dilated pupil size was 5.5 mm. Oral sedation was administered in the form of an Imprimis MKO Melt (midazolam 3mg/ketamine 25mg/ondansetron 2mg). The patient was brought to the operating room where cardiopulmonary monitoring was instituted and surgical time-out was performed, confirming the correct operative eye and IOL power. Topical anesthesia was administered and ophthalmic povidone-iodine 5% was instilled into the conjunctival fornices. Lidocaine gel was applied to the cornea and the joe-ocular area was prepped with Betadine 10% solution and draped in the usual sterile fashion for intraocular surgery, including an aperture drape. A Tegaderm transparent film dressing was cut in half and used to cover the lashes and lid margins. Care was taken to sequester the lashes and lid margins under the Tegaderm dressing. A lid speculum was placed between the lids of the operative eye and the Syed-Angel operating microscope was maneuvered into position. Angelito scissors were then used to make a conjunctival buttonhole approximately 6mm posterior to the limbus in the inferonasal quadrant. Blunt dissection was carried out to expose bare sclera, and a blunt-tipped sub-tenon?s anesthesia cannula was introduced and passed posteriorly along the globe where non-preserved plain lidocaine was injected into posterior sub-Tenon?s space. A sideport knife was used to make a paracentesis port inferiortemporally. Intraocular phenylephrine/lidocaine was injected into the anterior chamber. The anterior chamber was then filled with viscoelastic. An extra 1.0 mm of Viscoat dilation was achieved, revealing pseudoexfoliation material under the pupillary margin. A keratome knife was used to construct a two--plane near-clear corneal tunnel extending 2.0mm into clear cornea in the superiortemporal position.. A flap was raised on the anterior capsule and capsulorhexis forceps were used to complete a continuous curvilinear capsulorhexis of 5.0 mm. Balanced salt solution was then used to perform cortical cleaving hydrodissection and nuclear hydrodelineation until the lens could be freely rotated within the capsular bag. The lens nucleus was then disassembled and removed within the capsular bag and iris plane using phacoemulsification. Residual cortical material was removed using the I/A handpiece. The posterior capsule was carefully polished to remove as much residual lens epithelial cells as safely possible. The capsular bag was then inflated and the anterior chamber deepened with viscoelastic. The lens implant described above was inserted into the capsular bag using the Hiro Autonome Injector. A Kuglen hook was used to dial the IOL into position. Residual viscoelastic was then removed first from posterior to the IOL, then from the anterior chamber using the I/A handpiece. The lens implant was noted to center nicely within the capsular bag. The incisions were stromally hydrated, and the anterior chamber was reformed using BSS. Then 0.5cc of moxifloxacin 1.0mg/ml were injected into the capsular bag and anterior chamber. The incisions were checked with a Weck spear and found to be secure. Several drops of ophthalmic povidone-iodine 5% were then applied to the eye followed by two drops of Imprimis combination prednisolone/moxifloxacin/nepafenac solution. The drapes were removed and a clear plastic protective eye shield was placed over the eye. The patient was then returned to Same Day Surgery in stable condition.
--- NOTE | 2023-03-03 08:49 | W.ANESPOSTOP ---
Postoperative Evaluation Date, Time and Location Date Performed: 03/03/23 Time Performed: 08:49 Patient Location: Day Surgery Unit Vital Signs Most Recent Imported Vital Signs: Most Recent Vital Signs Temp Pulse Resp BP Pulse Ox 36.2 C L 74 18 126/81 95 03/03/23 08:36 03/03/23 08:36 03/03/23 08:36 03/03/23 08:36 03/03/23 08:36 Pain Score Most Recent Pain Score: Most Recent Pain Score Pain Level 0 03/03/23 08:36 Assessment Mental Status: Awake (Alert & Oriented to Patient Baseline) Airway and Respiratory Function: Patent airway with normal (patient baseline) respiratory exam Cardiovascular Function: Hemodynamically Stable Hydration Status: Adequately Hydrated Nausea & Vomiting: No Nausea or Vomiting Pain: Pt. Denies Any Pain Peripheral Nerve Block: Patient did not receive a nerve block
[2023-03-03 08:53] VITALS: BP 135/73; PULSE 70; RESP 18; TEMP 36.8; O2SAT 95
== END 2023-03-03 09:11 | disposition home or self-care (01) ==
LOC: SUR 06:55
PROVIDERS: PCP Family Medicine; Visit Provider Ophthalmology
PROC: (CPT 66984; principal; 2023-03-03 08:15)
DX: H25.011 Cortical age-related cataract, right eye (principal); H25.11 Age-related nuclear cataract, right eye
CPT/HCPCS: 66984; V2632

== ENCOUNTER 2023-03-17 10:53 | Day surgery (SDC) | payer MEDICARE, SELFPAY ==
[2023-03-17 11:25] VITALS: BP 133/84; PULSE 79; RESP 16; TEMP 36.6; O2SAT 96
[2023-03-17] MEDS: Tropicam./Phenyleph. (1/2.5%) 5 ML BTL OS ×3 (11:34→11:45)
[2023-03-17 11:58] VITALS: BMI 34.7
--- NOTE | 2023-03-17 11:58 | W.ANESPRE ---
General Info Date of Service Date Performed: 03/17/23 Height: 6 ft Weight: 116 kg Body Mass Index (BMI): 34.7 Surgical Procedure: Operation Date: 03/17/23 12:55 Proposed Procedure Side Surgeon p Cataract Extraction with IOL Implant Left Rick Roberson MD Meds Allergies and Home Medications Allergies Allergy/AdvReac Type Severity Reaction Status Date / Time Penicillins Allergy Severe Hives Verified 03/17/23 11:31 sulfamethoxazole Allergy Intermediate Skin Rash Verified 03/17/23 11:31 [From Bactrim] trimethoprim [From Bactrim] Allergy Intermediate Skin Rash Verified 03/17/23 11:31 erythromycin base AdvReac Intermediate GI upset Verified 03/17/23 11:31 Home Medication Medication Instructions Recorded amlodipine 10 mg tablet 10 mg PO HS 04/20/19 aspirin 325 mg tablet 325 mg PO DAILY 04/20/19 calcium carbonate 600 mg-vitamin 1 cap PO DAILY 04/20/19 D3 5 mcg (200 unit) capsule (Calcium 600 + D(3)) uuarjgir-dlb-hkfru acid 300 1 tab PO DAILY 04/20/19 mcg-lycopene 600 mcg-lutein 300 mcg tablet (Centrum Silver Men) omeprazole 40 mg capsule,delayed 40 mg PO DAILY 04/20/19 release simvastatin 20 mg tablet 20 mg PO QPM 04/20/19 clindamycin HCl 300 mg capsule 300 mg PO ONCE 07/30/22 Current Visit Medications: Current Medications Generic Name Dose Route Start Last Admin Trade Name Freq PRN Reason Stop Dose Admin Acetaminophen 1,000 mg 03/17/23 06:00 Acetaminophen 500 Mg Tab PO 04/16/23 05:59 Q4H PRN PRN Balanced Salt Solution 500 ml 03/17/23 06:00 Balanced Salt Soln.-Plus 500 Ml Bag OP 04/16/23 05:59 DIRECTED MARIELLE Miscellaneous Medication 0 ml 03/17/23 06:00 Prednisolone 1%, Moxifloxacin 0.5%, Nepafenac 0.1% 5ml Btl OS 04/16/23 05:59 DIRECTED MARIELLE Miscellaneous Medication 0 ml 03/17/23 06:00 03/17/23 11:45 Tropicam./Phenyleph. (1/2.5%) 5 Ml Btl OS 04/16/23 05:59 1 drp DIRECTED MARIELLE Administration Tetracaine HCl 0 ml 03/17/23 06:00 Tetracaine 0.5% 4 Ml Btl OS 04/16/23 05:59 DIRECTED [facility] Active Problems Active Problems: Problem Status Onset Code Cortical age-related cataract, left eye H25.012 Nuclear age-related cataract, left eye H25.12 Cortical age-related cataract, right eye H25.011 Nuclear age-related cataract, right eye H25.11 Hx of appendectomy Z90.49 Hammertoe of second toe of right foot M20.41 Painful orthopaedic hardware T84.84XA Osteomyelitis of ankle or foot, right, acute M86.171 Post-nasal drip R09.82 Allergy, unspecified, initial encounter T78.40XA Dental decay K02.9 Chronic nasal congestion R09.81 Deviated nasal septum J34.2 Hypertrophy of nasal turbinates J34.3 Nail dystrophy L60.3 Medical History Medical History Actinic keratitis Arthritis Chronic sinusitis Coronary artery disease GERD (gastroesophageal reflux disease) Hammer toes, bilateral Repair Headache High cholesterol History of psychosexual disorder Associated with inhibited libido, impotence Hypertension Myocardial infarction 2002, stents x 2; [place], [place] Mid- and proximal RCA F/U with PCP Obesity Plantar fascial fibromatosis Surgical History Surgical History History of angioplasty Cardiac stent x 2 Hx of colonoscopy Hx of inguinal hernia repair Hx of total knee arthroplasty Right & Left 2008, Revision Right 2013 Hx of ventral hernia repair Tobacco Smoking/Tobacco Use Status: Former Tobacco Use Alcohol Alcohol Intake: never Substance Use Substance use: Never Substance use type: does not use Vital Signs and Lab Results Vital Signs Most Recent Vital Signs in EMR: Most Recent Vital Signs Temp Pulse Resp BP Pulse Ox 36.6 C 79 16 133/84 96 03/17/23 11:25 03/17/23 11:25 03/17/23 11:25 03/17/23 11:25 03/17/23 11:25 Lab Results Blood Type / Crossmatch: No Data to Display Complete Blood Count: No Data to Display Complete Metabolic Panel: No Data to Display Liver Function Panel: No Data to Display Coagulation Panel: No Data to Display Cardiac Panel: No Data to Display Arterial Blood Gas: No Data to Display Venous Blood Gas: No Data to Display Pancreas Panel: No Data to Display Thyroid Panel: No Data to Display Infectious Disease: No Data to Display Blood Cultures: No Data to Display Toxicology Panel: No Data to Display Anesthesia Assessment and Plan Anesthesia History Personal History: No History of Anesthesia Complications Family History: No Family History of Anesthesia Complications Exercise Tolerance Exercise Tolerance: Metabolic Equivalents>4 Pertinent Negatives Pertinent Negatives: No Symptoms of GERD Cardiac & Pulmonary Exam Cardiac Exam: Normal S1/S2 Heart Sounds Pulmonary Exam: Clear Bilateral Breath Sounds Implantable Cardiac Device Does patient have a Pacemaker or an ICD?: No Airway Exam Known Difficult Airway: No Mallampati Class: 2 Mouth Opening: Normal (> 3cm) Thyromental Distance: Greater than 3 cm Neck Range of Motion: Limited ROM Neck Circumference: Normal Teeth Condition: Removable Dentures/Plates Upper and Removable Dentures/Plates Lower ASA Classification ASA Score: ASA 2 Emergency Case?: No NPO Status NPO Status: NPO Clears >2 hours, Solids >8 hours Anesthesia Plan Resuscitation Status: Full Code Anesthesia Technique: MAC Anesthesia Airway Planned: Natural Airway Pain Management: Surgeon and patient request nerve block Monitors Used: Standard Monitors
[2023-03-17] MEDS: Tetracaine 0.5% 4 ML BTL OS (12:27)
[2023-03-17] MEDS: Povidone-Iodine Ophth 30 ML BTL (12:28)
[2023-03-17] MEDS: Lidocaine 1% Pres-Free 5 ML VIAL (12:32)
[2023-03-17] MEDS: Balanced Salt Soln.-PLUS 500 ML BAG OP (12:32)
[2023-03-17] MEDS: Duovisc Viscoelastic System EACH 1 EACH (12:32)
[2023-03-17] MEDS: Phenylephrine/Lidocaine (15/10) MG/ML 1 ML VIAL (12:32)
[2023-03-17 12:52] VITALS: BP 108/84; PULSE 79; RESP 16; TEMP 36.3; O2SAT 97
--- NOTE | 2023-03-17 12:53 | PDOC.DSDIS_ITS ---
Date of service: 03/17/23 Time of Service: 12:54 Discharge Plan Disposition Patient Disposition: Home Discharge Details Attending Provider: Rick Roberson Primary Care Provider: Amadeo Glass [facility] and New Rx's Prescriptions: No Action clindamycin HCl 300 mg capsule 300 mg PO ONCE Rx Instructions: take prior to dental visit. aspirin 325 mg Tablet 325 mg PO DAILY omeprazole 40 mg Capsule,Delayed Release(Dr/Ec) 40 mg PO DAILY amlodipine 10 mg Tablet 10 mg PO HS simvastatin 20 mg Tablet 20 mg PO QPM Calcium 600 + D(3) 600 mg calcium- 200 unit Capsule 1 cap PO DAILY Centrum Silver Men 300-600-300 mcg Tablet 1 tab PO DAILY Discharge Instructions Stand Alone Forms: Post-op Topical Cataract, Bronwyn Berkowitz ([facility]U) Discharge Orders Discharge Orders: Discharge Order (Routine); Ordered 03/17/23 Ordered By: Rick Roberson DS: Diagnosis Discharge Diagnosis (1) Cortical age-related cataract, left eye: Status: Resolved (2) Nuclear age-related cataract, left eye: Status: Resolved
--- NOTE | 2023-03-17 12:54 | ROE_ITS ---
Date of service: 03/17/23 Time of Service: 12:54 Operative Note Operative Note DATE OF PROCEDURE: 03/17/23 PRE-OP DIAGNOSIS: Nuclear/cortical cataract, left eye POST-OP DIAGNOSIS: same PROCEDURE: Cataract extraction using phacoemulsification with intraocular lens implant, left eye SURGEON: Rick Roberson ANESTHESIA TYPE: Local By Surgeon and MAC Refer to Anesthesia Record PATHOLOGY: none sent COMPLICATIONS: None Patient was transported to: same day Patient's condition: stable Implants: Hiro Clareon [id number] Indications: Progressive decreased vision due to cataract, left eye Procedure Description: CATARACT SURGERY OPERATIVE REPORT PREOPERATIVE DIAGNOSIS: Nuclear/cortical cataract, left eye POSTOPERATIVE DIAGNOSIS: Same OPERATION: Cataract extraction using phacoemulsification with posterior chamber intraocular lens implant, left eye. IOL: IOL Swing Manager/Model: Hiro Clareon [id number] IOL Power: + 22.0 diopters IOL Serial Number: [id number] Optic Diameter: 6.0mm Haptic/Overall Diameter: 13.0mm PHACO INFO: Hiro[employer]CorneruriVisual Pro 360 Vision System with OZil and Active Fluidics Cumulative Dispersed Energy (CDE): 7.93 seconds SURGEON: Rick Roberson MD, VIJAY ANESTHESIA: Monitored Anesthesia Care (MAC), with local sub-tenon's anesthetic infiltration COMPLICATIONS: None SPECIMENS: None INDICATIONS FOR PROCEDURE: The patient is a 78-year-old gentleman with history of diminished visual acuity in his left eye secondary to the development of nuclear/cortical cataract. He has already undergone cataract surgery in his right eye and is doing well postoperatively. He now presents for cataract surgery in the left eye. See o ffice notes for detailed information. PROCEDURE: The correct surgical eye was identified and marked as the left eye and the pupil was dilated in the preoperative area using mydriatics and cycloplegics. The dilated pupil size was 5.5 mm. Oral sedation was administered in the form of an Imprimis MKO Melt (midazolam 3mg/ketamine 25mg/ondansetron 2mg). The patient was brought to the operating room where cardiopulmonary monitoring was instituted and surgical time-out was performed, confirming the correct operative eye and IOL power. Topical anesthesia was administered and ophthalmic povidone-iodine 5% was instilled into the conjunctival fornices. Lidocaine gel was applied to the cornea and the joe-ocular area was prepped with Betadine 10% solution and draped in the usual sterile fashion for intraocular surgery, including an aperture drape. A Tegaderm transparent film dressing was cut in half and used to cover the lashes and lid margins. Care was taken to sequester the lashes and lid margins under the Tegaderm dressing. A lid speculum was placed between the lids of the operative eye and the Hiro Lux[employer] Revalia operating microscope was maneuvered into position. Angelito scissors were then used to make a conjunctival buttonhole approximately 6mm posterior to the limbus in the inferonasal quadrant. Blunt dissection was carried out to expose bare sclera, and a blunt-tipped sub-tenon?s anesthesia cannula was introduced and passed posteriorly along the globe where non- preserved plain lidocaine was injected into posterior sub-Tenon?s space. A sideport knife was used to make a paracentesis port. Intraocular phenylephrine/lidocaine was injected into the anterior chamber. The anterior chamber was then filled with viscoelastic. An additional 1 mm of pupillary dilation was obtained through the use of Viscoat. Pseudoexfoliation material was evident under the pupillary margin. A keratome knife was used construct a two-plane clear corneal tunnel extending 2.0mm into clear cornea. A flap was raised on the anterior capsule and capsulorhexis forceps were used to complete a continuous curvilinear capsulorhexis of 5.5 mm. Balanced salt solution was then used to perform cortical cleaving hydrodissection and nuclear hydrodelineation until the lens could be freely rotated within the capsular bag. The lens nucleus was then disassembled and re moved within the capsular bag and iris plane using phacoemulsification. Residual cortical material was removed using the irrigation/aspiration handpiece. The posterior capsule was carefully polished to remove as much residual lens epithelial cells as safely possible. The capsular bag was then inflated and the anterior chamber deepened with viscoelastic. The lens implant described above was inserted into the capsular bag using the Hiro Autonome Injector. A Kuglen hook was used to dial the IOL into position. Residual viscoelastic was then removed first from posterior to the IOL, then from the anterior chamber using the I/A handpiece. The lens implant was noted to center nicely within the capsular bag. The incisions were stromally hydrated, and the anterior chamber was reformed using BSS. Then 0.5cc of moxifloxacin 1.0mg/ml were injected into the capsular bag and anterior chamber. The incisions were checked with a Weck spear and found to be secure. Several drops of ophthalmic povidone-iodine 5% were then applied to the eye followed by two drops of Imprimis combination prednisolone/moxifloxacin/nepafenac solution. The drapes were removed and a clear plastic protective eye shield was placed over the eye. The patient was then returned to Same Day Surgery in stable condition.
--- NOTE | 2023-03-17 13:01 | W.ANESPOSTOP ---
Postoperative Evaluation Date, Time and Location Date Performed: 03/17/23 Time Performed: 13:01 Patient Location: Day Surgery Unit Vital Signs Most Recent Imported Vital Signs: Most Recent Vital Signs Temp Pulse Resp BP Pulse Ox 36.6 C 79 16 133/84 96 03/17/23 11:25 03/17/23 11:25 03/17/23 11:25 03/17/23 11:25 03/17/23 11:25 Pain Score Most Recent Pain Score: Most Recent Pain Score Pain Level 0 03/17/23 11:25 Assessment Mental Status: Awake (Alert & Oriented to Patient Baseline) Airway and Respiratory Function: Patent airway with normal (patient baseline) respiratory exam Cardiovascular Function: Hemodynamically Stable Hydration Status: Adequately Hydrated Nausea & Vomiting: No Nausea or Vomiting Pain: Pt. Denies Any Pain Peripheral Nerve Block: Patient did not receive a nerve block
[2023-03-17 13:20] VITALS: BP 123/72; PULSE 73; RESP 17; TEMP 36.6; O2SAT 95
== END 2023-03-17 13:20 | disposition home or self-care (01) ==
LOC: SUR 10:53
PROVIDERS: PCP Family Medicine; Visit Provider Ophthalmology
PROC: (CPT 66984; principal; 2023-03-17 12:45)
DX: H25.012 Cortical age-related cataract, left eye (principal); H25.12 Age-related nuclear cataract, left eye; K21.9 Gastro-esophageal reflux disease without esophagitis; I10 Essential (primary) hypertension; Z98.41 Cataract extraction status, right eye
CPT/HCPCS: 66984; V2632

== ENCOUNTER → 2023-11-11 13:54 | Outpatient (BNVA) | payer MEDICARE, SELFPAY | PROVIDERS: PCP Family Medicine; Referring Provider Family Medicine; Visit Provider Student in an Organized Health Care Education/Training Program | DX: M19.012 Primary osteoarthritis, left shoulder (principal) | CPT/HCPCS: 99203 ==

== ENCOUNTER → 2023-11-28 00:55 | Outpatient (CLI) | payer MEDICARE, SELFPAY ==
--- NOTE | 2023-11-28 07:45 | DI.CT_ITS ---
Exam(s) CT UPPER EXTREMITY LT WO EXAM: CT UPPER EXTREMITY LT WO CLINICAL HISTORY: surgical planning,ARTHRITIS LT GLENOHUMERAL JOINT,M19.012. TECHNIQUE: Imaging Protocol: Axial computed tomography images with coronal and sagittal reformatted images were created and reviewed. COMPARISON: CT CT SINUS WO CONTRAST from 10/06/[address] SINUS WO CONTRAST from 09/21/2020 CR XR SHOULDER MIN 2V LT from 10/20/2023 FINDINGS: Bones: There is no evidence of fracture or dislocation. Bony alignment is satisfactory. No cellulitic or osteomyelitic changes are identified. No lytic or sclerotic lesions are identified. Joints: Mild spurring at AC joint. Moderate to severe narrowing of the glenohumeral joint space with periarticular spurring. Fluid is noted in the subcoracoid bursa. No significant muscular atrophy. Soft Tissues: Coronary artery calcifications. Emphysematous changes in the upper lobes. Scarring ri ght lung apex. 6 millimeter nodule right upper lobe adjacent to fissure. Multiple enlarged lymph no lily in the superior mediastinum. Largest measures 2.7 cm in long axis in the right paratracheal marco on. IMPRESSION: Advanced degenerative changes of glenohumeral joint. Veds-gb-mnlbvwox degenerative changes of the AC joint. Emphysematous changes noted in the upper lobes. Mediastinal adenopathy. 6 millimeter nodule right upper lobe. Chest CT is recommended for further evaluation. Unexpected findings RADIATION DOSE DELIVERED: 1,009.18mGy.cm Total DLP 1,009.18mGy.cm Total DLP DATA REPOSITORY: All CT scans at this facility are submitted to the National Radiology Data Registry (NRDR) Dose Index Registry (DIR) with the [employer] ([employer]). RADIATION OPTIMIZATION: All CT scans at this facility use at least one of these dose optimization te chniques: automated exposure control; mA and/or kV adjustment per patient size (includes targeted exa ms where dose is matched to clinical indication); or iterative reconstruction.
== END ==
PROVIDERS: PCP Family Medicine; Visit Provider Student in an Organized Health Care Education/Training Program
DX: M19.012 Primary osteoarthritis, left shoulder (principal)
CPT/HCPCS: 73200

== ENCOUNTER → 2023-12-02 08:48 | Outpatient (BNVA) | payer MEDICARE, SELFPAY | PROVIDERS: PCP Family Medicine; Referring Provider Family Medicine; Visit Provider Student in an Organized Health Care Education/Training Program | DX: M19.012 Primary osteoarthritis, left shoulder (principal); R91.1 Solitary pulmonary nodule | CPT/HCPCS: 99213 ==

== ENCOUNTER → 2024-01-14 09:21 | Outpatient (BNVA) | payer MEDICARE, SELFPAY | PROVIDERS: PCP Family Medicine; Referring Provider Family Medicine; Visit Provider Student in an Organized Health Care Education/Training Program | DX: M19.012 Primary osteoarthritis, left shoulder (principal); R91.1 Solitary pulmonary nodule | CPT/HCPCS: 99214 ==

== ENCOUNTER 2024-01-22 06:02 | Day surgery (SDC) | payer MEDICARE, SELFPAY ==
[2024-01-22] VITALS (11 sets, daily range): BP systolic 105–138; BP diastolic 58–84; PULSE 60–83; RESP 12–20; TEMP 36.1–36.5; O2SAT 92–100; BMI 33.2
[2024-01-22] MEDS: Lactated Ringers 1,000 ML 30 ML IV ×2 (06:38→10:39)
--- NOTE | 2024-01-22 07:00 | DI.RAD_ITS ---
Exam(s) XR SHOULDER LT COMPLETE 2+V EXAM: XR SHOULDER LT COMPLETE 2+V CLINICAL HISTORY: Reverse TSA instability. TECHNIQUE: 2D digital imaging was performed. Three views. COMPARISON: CT CT UPPER EXTREMITY LT WO from 11/28/2023 FINDINGS: BONES: A reverse shoulder prosthesis has been placed. The alignment appears satisfactory. SOFT TISSUE: Residual postsurgical air. IMPRESSION: Status post shoulder prosthesis. DATA REPOSITORY: RADIATION DOSE DELIVERED:
--- NOTE | 2024-01-22 07:06 | PDOC.DSDIS_ITS ---
Date of service: 01/22/24 Time of Service: 15:30 Discharge Plan Disposition Patient Disposition: Home Condition: Stable Discharge Details Attending Provider: Shankar Wolff Primary Care Provider: Amadeo Glass Home Meds and New Rx's Prescriptions: Continued quetiapine [Seroquel] 50 mg tablet 50 mg PO DAILY clindamycin HCl 300 mg capsule 300 mg PO ONCE Rx Instructions: take prior to dental visit. aspirin 81 mg tablet,delayed release (DR/EC) 81 mg PO DAILY atorvastatin 80 mg tablet 80 mg PO DAILY Eliquis 5 mg tablet 5 mg PO BID metoprolol succinate [Toprol XL] 50 mg tablet extended release 24 hr 50 mg PO DAILY omeprazole 40 mg Capsule,Delayed Release(Dr/Ec) 40 mg PO DAILY amlodipine 10 mg Tablet 10 mg PO HS Calcium 600 + D(3) 600 mg calcium- 200 unit Capsule 1 cap PO DAILY Centrum Silver Men 300-600-300 mcg Tablet 1 tab PO DAILY Discharge Instructions Additional Instructions: Surgery: Left reverse total shoulder arthroplasty (constrained liner) with biceps tenodesis Activity: Do not lift anything heavier than a coffee. You should keep your arm at your side in a neutral position at all times except for gentle range of motion exercises, physical therapy, and essential activities. You should use the sling whenever you are out of the house. You may have to adjust the abduction pillow or remove it for comfort. At home it is best to remove the sling and rest the arm on a pillow at your side or support the operative side with your other hand. A physical therapy prescription will be sent e lectronically to start in about 3 weeks. STANDARD RTSA protocol. Prescriptions: Resume home aspirin and Eliquis tomorrow morning You may use dxtu-mip-ttussch NSAIDs (ibuprofen, Motrin, Aleve, Advil) with a meal as needed for moderate pain for a couple weeks You may use xfmq-xrr-mufrcfe Tylenol (acetaminophen) as needed for mild pain. These pain medications may be taken all at once or in different combinations as needed. Also, recommend Colace (docusate) as a stool softener as surgery and pain medicine cause constipation. You may try xohw-iky-ljtpqel diphenhydramine (Benadryl) 25-50 mg nightly as a sleep aid Dressings: Leave dressing in place until follow-up. Keep clean and dry at all times. No showers please. Follow-up: 10-[address] Wolff You may take off the leg compression stockings this evening at home. You may also leave them on a few days longer if you have a history of leg swelling or edema. Please call the office during business hours with any questions or conc erns. Let us know right away if you develop any redness, drainage, fevers, chest pain, or trouble breathing. Do not drink alcohol or drive for at least 24 hours after anesthesia. Stand Alone Forms: Anesthesia Discharge Inst., Anes.Nerve Block Instructions, Bronwyn Berkowitz (DSU) Referrals: Shankar Wolff MD [ [facility] STAFF PHYSICIAN] - 02/03/24 11:00 am Discharge Orders Discharge Orders: Discharge Order (Routine); Ordered 01/22/24 Ordered By: Joshua Troy DS: Diagnosis Discharge Diagnosis (1) Arthritis of left glenohumeral joint: Status: Acute
--- NOTE | 2024-01-22 07:09 | ROE_ITS ---
Date of service: 01/22/24 Time of Service: 07:30 Operative Note Operative Note DATE OF PROCEDURE: 01/22/24 PRE-OP DIAGNOSIS: Left: 1. Glenohumeral arthritis 2. Long head of the biceps tendinopathy POST-OP DIAGNOSIS: same PROCEDURE: Left: 1. Reverse total shoulder arthroplasty, CPT # 168[address] 2. Open biceps tenodesis, CPT # 26718 The assistant signal maintainer was medically required as this procedure involves retraction, protection of neurovascular structures, and manipulation of multiple instruments and implants at the same time, which cannot be done without a skilled assistant signal maintainer. SURGEON: Shankar Wolff SUNGLASS CLIP ATTACHER: Joshua Troy ANESTHESIA TYPE: Local By Surgeon, General LMA/ETT and Primary Nerve Block Refer to Anesthesia Record ESTIMATED BLOOD LOSS: 75 COMPLICATIONS: None Patient was transported to: PACU Implants: [employer] modular glenoid system baseplate 24 mm +2 lat [employer] modular glenoid system central post 20 mm [employer] modular glenoid system peripheral locking screws 36 mm inferior, 32 mm superior, 20 mm posterior, 16 mm anterior [employer] modular glenoid system glenosphere 42 +4 mm lateralized [employer] humeral stem 135 degrees size 10 [employer] suture cup size 42 posterior offset [employer] humeral insert size 42 +3 mm constrained Indications: Please see complete medical record for details. Findings: Significant long head biceps tenosynovitis, anterior capsular contracture, moderate grade partial subscapularis and superior rotator cuff partial tear and degeneration, and significant glenohumeral cartilage loss. Procedure Description: In the operating room, general anesthesia was induced. The patient was positioned beachchair on the operating room table. All bony prominences were well-padded. Preoperative antibiotics were administered. The shoulder was prepped and draped in the usual sterile fashion for shoulder arthroplasty. The correct patient, procedure, and side of the procedure were all verified prior to incision. The deltopectoral approach was preinjected with 0.25% bupivacaine containing epinephrine and taken to the anterior shoulder. Care was taken to bluntly dissect the interval between the deltoid and pectoralis major muscles and to identify the cephalic vein within its fat stripe. The the vein was mobilized laterally. Subdeltoid space and conjoined tendon were freed of adhesions. The long head of the biceps tendon was identified just lateral to the lesser tuberosity. The uppermost margin of the pectoralis major tendon was released from the proximal humerus. The long head of the biceps tendon was tenodesed in situ using SutureTape in a sqemow-gc-rytvn fashion securing it superior margin the pectoralis major tendon. The biceps tendon was amputated and followed prox imally to identify the rotator interval. A subscapularis peel was started and then tenotomy done given advanced age for tendon quality. The supraspinatus and infraspinatus were identified and debrided of partial-thickness tearing. Appropriate coagulation was achieved especially interiorly. The anatomic neck was cut using an oscillating saw with the humeral head bone brought back table in case there was a need for future bone grafting. The proximal humerus was delivered from the wound with adduction and external rotation. The proximal humeral protection plate was used to provisionally c onfirm suture cup and glenosphere size. Reamers were started appropriately posterior to the bicipital groove taking care to maintain in line approach with the humeral canal. Sequential reaming was done from size 5 up to size 9. Next, the broaches were sequentially used to open the proximal humerus starting with a size 5 and going up to size 10 and sunk to the appropriate depth while maintaining approximately 30 degrees retroversion to match patient anatomy. There was good metaphyseal fit and rotational control of the proximal humerus with this size. The posterior offset guide was used to ream for the suture cup. Attention was then turned to the glenoid and retractors were placed and a circumferential release performed using the long head of the biceps remnant to remove soft tissue about the glenoid rim. Care was taken inferiorly to work on bone only between 5 and 7:00 o'clock and bluntly elevate tissues inferiorly. The standard guide was placed on the glenoid and used to confirm placement and trajectory of the central guidepin. The guidepin was inserted and advanced just through the far cortex ensuring adequate central fixation length. The glenoid was prepared according to bike mechanic specifications for a standard baseplate and central post. The baseplate was impacted onto the glenoid surface. The locking guide was then used to drill and place appropriately lengthed inferior, superior, anterior, and posterior screws. The eftx-vbz-piddgwjal reamer was used to confirm adequate peripheral reaming. The glenosphere was applied with the patent clerk and then impacted to engage the Petit taper. It was then locked with appropriate countersinking of the setscrew. The glenosphere was inspected and found to have good fit, appropriate positioning, and no soft tissue or bony impingement. Attention was then turned back to the proximal humerus. The humeral trial cup was connected. Trialing was commenced with +3 mm liner. The shoulder was reduced and taken through range of motion showing excellent stability and appropriate tension on the deltoid and conjoined tension. The trial components were removed from the proximal humerus. The wound was copiously irrigated with normal saline. The the proximal humeral stem and suture cup were assembled and brought over the proximal humerus. A small amount of vancomycin powder was distributed in the proximal humerus. The humeral component and suture cup were impacted, but did not fully seat in the proximal humerus. They were removed, the 10 size broach replaced readily as well as a suture cup connected as soft tissues and bone were confirmed to be out of the way. The final humeral component and suture cup were then impacted again, and did sit more appropriately but a couple millimeters higher than the b aviles. Likely due to preserved posterior superior rotator cuff blocking the combined placement of the implants, but there was also very strong bony firm and feel on impaction. Given the slight proud nature increase length, trialing was done again. The +3mm liner was added, and the shoulder was reduced and range of motion, stability, and tension confirmed to be appropriate without undue tension. Decision was made to maintain these implants as opposed to going down to size or attempting to sync it further and causing a problem. The final +3mm liner was then connected, and range of motion, stability, and tension confirmed again. Constrained liner was chosen due to advanced age, to allow immediate range of motion, and lack of subscapularis repair. The shoulder was copiously irrigated with Betadine and normal saline. Vancomycin powder was distributed deeply about the shoulder and through subcutaneous tissues. The interval was reapproximated using 2-0 Monocryl with the vein buried and preserved. Subcutaneous tissue was irrigated then closed using 2-0 Monocryl in a buried interrupted fashion. Skin was closed using 3-0 Monocryl in a buried subcuticular fashion. Skin glue was applied to the incision. A silver impregnated bandage was placed over the incision. The extremity was placed into a shoulder immobilizer. The patient awoke from anesthesia without complication and was taken to the recovery room in stable condition.
[2024-01-22] MEDS: ceFAZolin 2 GM/50 ML BAG IVPB ×2 (07:50→11:41)
--- NOTE | 2024-01-22 08:24 | W.ANESPRE ---
General Info Date of Service Date Performed: 01/22/24 Height: 6 ft Weight: 111 kg Body Mass Index (BMI): 33.2 Surgical Procedure: Operation Date: 01/22/24 07:40 Proposed Procedure Side Surgeon p Shoulder Total Arthroplasty, Biceps Tenodesis Left Shankar Wolff MD Actual Procedure Side Surgeon p Shoulder Total Arthroplasty, Biceps Tenodesis Left Shankar Wolff MD Pre-Op Diagnosis Post-Op Diagnosis Left shoulder pain secondary to glenohumeral arthritis + degenerative rotator cuff tearing Meds Allergies and Home Medications Allergies Allergy/AdvReac Type Severity Reaction Status Date / Time Penicillins Allergy Severe Hives Verified 01/22/24 06:15 sulfamethoxazole Allergy Intermediate Skin Rash Verified 01/22/24 06:15 [From Bactrim] trimethoprim [From Bactrim] Allergy Intermediate Skin Rash Verified 01/22/24 06:15 erythromycin base AdvReac Intermediate GI upset Verified 01/22/24 06:15 Home Medication Medication Instructions Recorded amlodipine 10 mg tablet 10 mg PO HS 04/20/19 calcium carbonate 600 mg-vitamin 1 cap PO DAILY 04/20/19 D3 5 mcg (200 unit) capsule (Calcium 600 + D(3)) ucbwckxm-ul-tqasz 300 mcg-K 60 1 tab PO DAILY 04/20/19 mcg-lycop 600 mcg-lutein 300 mcg tablet (Centrum Silver Men) omeprazole 40 mg capsule,delayed 40 mg PO DAILY 04/20/19 release clindamycin HCl 300 mg capsule 300 mg PO ONCE 07/30/22 quetiapine 50 mg tablet (Seroquel) 50 mg PO DAILY 08/21/23 apixaban 5 mg tablet (Eliquis) 5 mg PO BID 10/29/23 atorvastatin 80 mg tablet 80 mg PO DAILY 10/29/23 metoprolol succinate 50 mg 50 mg PO DAILY 10/29/23 tablet,extended release 24 hr (Toprol XL) aspirin 81 mg tablet,delayed 81 mg PO DAILY 11/11/23 release Current Visit Medications: Current Medications Generic Name Dose Route Start Last Admin Trade Name Freq PRN Reason Stop Dose Admin Droperidol 0.625 mg 01/22/24 06:25 Droperidol 5 Mg/2 Ml Vial IVP 02/21/24 06:24 DIRECTED PRN Nausea Ephedrine Sulfate 0 mg 01/22/24 06:25 Ephedrine 25 Mg/5 Ml Syringe IVP 02/21/24 06:24 DIRECTED PRN Fentanyl 0 mcg 01/22/24 06:25 Fentanyl 100 Mcg/2 Ml Vial IVP 02/21/24 06:24 DIRECTED PRN Hydromorphone HCl 0 mg 01/22/24 06:25 Hydromorphone 2 Mg/Ml Syr IVP 02/21/24 06:24 DIRECTED PRN Ringer's Solution 1,000 mls @ 30 mls/hr 01/22/24 06:00 01/22/24 06:38 IV 01/22/24 23:59 30 mls/hr INFUSION MARIELLE Administration Cefazolin Sodium/Dextrose 2 gm in 50 mls @ 100 mls/hr 01/22/24 06:00 Ancef Duplex IVPB 01/22/24 23:59 PREOP MARIELLE Tranexamic Acid/Sodium Chloride 100 mls @ 600 mls/hr 01/22/24 06:00 IVPB 01/22/24 23:59 PREOP MARIELLE Cefazolin Sodium/Dextrose 2 gm in 50 mls @ 100 mls/hr 01/22/24 07:15 Ancef Duplex IVPB 02/21/24 07:14 PREOP MARIELLE IV Miscellaneous Supplies 1 each 01/22/24 06:00 Iv Access IV 01/22/24 23:59 DIRECTED MARIELLE Lactobacillus Acidophilus/Casei 1 cap 01/22/24 12:30 L. Acidophilus, Casei, Rhamnosus Cap PO 01/22/24 12:31 DAILY ONE Naloxone HCl 0 mg 01/22/24 06:25 Naloxone 0.4 Mg/Ml Vial IVP 02/21/24 06:24 PRN PRN Sodium Chloride 0 ml 01/22/24 06:00 Normal Saline Flush 10 Ml Syr IV 01/22/24 23:59 PRN PRN Sodium Chloride 0 ml 01/22/24 06:00 Normal Saline 10 Ml Vial IJ 01/22/24 23:59 DIRECTED PRN Sterile Water 0 ml 01/22/24 06:00 Water,Injection,Sterile 10 Ml Vial IJ 01/22/24 23:59 DIRECTED PRN PFSH Active Problems Active Problems: Problem Status Onset Code Pulmonary nodule R91.1 Arthritis of left glenohumeral joint M19.012 Atherosclerosis of coronary artery I25.10 Pain in right foot M79.671 Onychomycosis B35.1 PVD (peripheral vascular disease) I73.9 Nail dystrophy L60.3 Chronic nasal congestion R09.81 Dental decay K02.9 Painful orthopaedic hardware T84.84XA Hammertoe of second toe of right foot M20.41 GERD (gastroesophageal reflux disease) K21.9 Plantar fascial fibromatosis M72.2 Coronary artery disease I25.10 Hypertension I10 High cholesterol E78.00 Medical History Medical History A-fib 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, bilateral Repair Hypertrophy of nasal turbinates Deviated nasal septum Allergy, unspecified, initial encounter Post-nasal drip Osteomyelitis of ankle or foot, right, acute Myocardial infarction 2002, stents x 2; [place], [place] Mid- and proximal RCA F/U with PCP and cardiology Arthritis Headache Actinic keratitis Chronic sinusitis History of psychosexual disorder Associated with inhibited libido, impotence Obesity Surgical History Surgical History History of neck surgery plate and screws in C5-C7 Cortical age-related cataract, left eye Nuclear age-related cataract, left eye Cortical age-related cataract, right eye Nuclear age-related cataract, right eye Hx of appendectomy Incisional hernia repair 1 year later History of angioplasty Cardiac stent x 2 Hx of total knee arthroplasty Right & Left 2008, Revision Right 2013 Hx of colonoscopy Hx of inguinal hernia repair Hx of ventral hernia repair Tobacco Smoking/Tobacco Use Status: Former Tobacco Use Alcohol Alcohol Intake: never Substance Use Substance use: Never Substance use type: does not use Vital Signs and Lab Results Vital Signs Most Recent Vital Signs in EMR: Most Recent Vital Signs Temp Pulse Resp BP Pulse Ox 36.2 C L 74 16 110/70 100 01/22/24 06:34 01/22/24 06:34 01/22/24 06:34 01/22/24 06:34 01/22/24 06:34 Lab Results Blood Type / Crossmatch: No Data to Display Complete Blood Count: No Data to Display Complete Metabolic Panel: No Data to Display Liver Function Panel: No Data to Display Coagulation Panel: No Data to Display Cardiac Panel: No Data to Display Arterial Blood Gas: No Data to Display Venous Blood Gas: No Data to Display Pancreas Panel: No Data to Display Thyroid Panel: No Data to Display Infectious Disease: No Data to Display Blood Cultures: No Data to Display Toxicology Panel: No Data to Display Anesthesia Assessment and Plan Anesthesia History Personal History: No History of Anesthesia Complications Family History: No Family History of Anesthesia Complications Exercise Tolerance Exercise Tolerance: Metabolic Equivalents>4 Pertinent Negatives Pertinent Negatives: No Symptoms of GERD (Rx treatment) Cardiac & Pulmonary Exam Cardiac Exam: Normal S1/S2 Heart Sounds Pulmonary Exam: Clear Bilateral Breath Sounds (? mild lung disease) Implantable Cardiac Device Does patient have a Pacemaker or an ICD?: No Airway Exam Known Difficult Airway: No Mallampati Class: 2 Mouth Opening: Normal (> 3cm) Thyromental Distance: Greater than 3 cm Facial Hair: Full [place] Neck Range of Motion: Limited ROM Neck Circumference: Normal Teeth Condition: Removable Dentures/Plates Upper and Removable Dentures/Plates Lower ASA Classification ASA Score: ASA 3 Emergency Case?: No NPO Status NPO Status: NPO Clears >2 hours, Solids >8 hours Anesthesia Plan Resuscitation Status: Full Code Anesthesia Technique: General Anesthesia Airway Planned: Endotracheal Tube Pain Management: Surgeon and patient request nerve block Monitors Used: Standard Monitors
--- NOTE | 2024-01-22 08:27 | W.ANESNERVE ---
Nerve Block Single Injection Procedure Date and Time Date Performed: 01/22/24 Procedure Start: 07:20 Location Where Procedure Performed Procedure Location: Day Surgery Unit Reason Performed: Postoperative Analgesia Requesting Provider: Shankar Wolff Timeout Performed Timeout Performed: Yes Monitoring Used ECG, Blood Pressure and SpO2 Sterility Sterility: Hand Hygiene, Surgical Cap, Surgical Mask, Sterile Gloves, Eye Protection and Chlorhexidine Sedation Given During Procedure Sedation Given (Indicate Dose Given): Versed IV Dose:: 2mg IVP Patient Mental Status Patient Mental Status: Sedate with meaningful communication Nerve Block 1st Nerve Block: Laterality: Left Block Type: Interscalene Ultrasound Image Saved?: Yes Needle / Catheter Used: 80mm SonoPlex II Local Anesthetic Bolus (Indicate Dose Given): Lidocaine used for local infiltration of skin, Bupivacaine 0.5% Dose:: 10cc/0.5% (50mg) and Exparel Dose:: 10cc/1.3% (133mg) Additives (Indicate Dose Given): Epinephrine to make 1:200,000 (5mcg/ml) Dose:: 100mcg/20cc (1:200,000) and Decadron Dose:: 10mg PF Ultrasound: Sterile probe cover and gel used Nerve Stimulator: Not Used Paresthesia: None Procedure Tolerated: No Complications and Patient tolerated well Procedure Outcome: Successful Performed By: Macho Coates
--- NOTE | 2024-01-22 11:56 | W.ANESPOSTOP ---
Postoperative Evaluation Date, Time and Location Date Performed: 01/22/24 Time Performed: 11:57 Patient Location: Day Surgery Unit Vital Signs Most Recent Imported Vital Signs: Most Recent Vital Signs Temp Pulse Resp BP Pulse Ox 36.3 C L 63 16 116/65 93 01/22/24 11:44 01/22/24 11:44 01/22/24 11:44 01/22/24 11:44 01/22/24 11:44 Pain Score Most Recent Pain Score: Most Recent Pain Score Pain Level 0 01/22/24 11:44 Assessment Mental Status: Awake (Alert & Oriented to Patient Baseline) Airway and Respiratory Function: Patent airway with normal (patient baseline) respiratory exam Cardiovascular Function: Hemodynamically Stable Hydration Status: Adequately Hydrated Nausea & Vomiting: No Nausea or Vomiting Pain: Pt. Denies Any Pain Peripheral Nerve Block: Regional nerve block not resolved at time of post operative discharge
== END 2024-01-22 14:00 | disposition home or self-care (01) ==
PROVIDERS: PCP Family Medicine; Visit Provider Student in an Organized Health Care Education/Training Program
PROC: (CPT 23472; principal; 2024-01-22 07:30)
DX: M19.012 Primary osteoarthritis, left shoulder (principal)
CPT/HCPCS: 23472; C1713; 76942; 73030; C9290; J0131; J0171; J0665; J0690; J1100; J1885; J2001; J2250; J2371; J2405; J2704; J3370

== ENCOUNTER 2024-02-03 14:18 | Outpatient (CLI) | payer MEDICARE, SELFPAY ==
--- NOTE | 2024-02-03 11:20 | DI.RAD_ITS ---
Exam(s) XR SHOULDER LT COMPLETE 2+V EXAM: XR SHOULDER LT COMPLETE 2+V CLINICAL HISTORY: F/U LEFT RTSA. TECHNIQUE: 2D digital imaging was performed. COMPARISON: CR XR SHOULDER LT COMPLETE 2+V from 01/22/2024 FINDINGS: 3 views There is stable position alignment of the components of the recently placed left shoulder reverse pro sthesis. No fracture or loosening evident and no radiographic evidence of osteomyelitis. There is, however, still some gas in the soft tissues. IMPRESSION: As above. Given that there is still some gas in the soft tissues (surgery was 01/22/2024), consider possibility of significant infectious process. DATA REPOSITORY: RADIATION DOSE DELIVERED:
== END 2024-02-03 14:19 | disposition home or self-care (01) ==
LOC: DIORS 14:19
PROVIDERS: PCP Family Medicine; Visit Provider Student in an Organized Health Care Education/Training Program
DX: Z47.1 Aftercare following joint replacement surgery; Z96.612 Presence of left artificial shoulder joint
CPT/HCPCS: 73030

== ENCOUNTER → 2024-03-23 10:09 | Outpatient (BNVA) | payer MEDICARE, SELFPAY | PROVIDERS: PCP Family Medicine; Visit Provider Student in an Organized Health Care Education/Training Program | DX: Z47.1 Aftercare following joint replacement surgery (principal); Z96.612 Presence of left artificial shoulder joint ==

== ENCOUNTER 2024-06-22 15:39 | Outpatient (CLI) | payer MEDICARE, SELFPAY ==
--- NOTE | 2024-06-22 09:45 | DI.RAD_ITS ---
Exam(s) XR SHOULDER LT COMPLETE 2+V EXAM: XR SHOULDER LT COMPLETE 2+V CLINICAL HISTORY: F/U LEFT RTSA. TECHNIQUE: 2D digital imaging was performed. Three views. COMPARISON: CR XR SHOULDER LT COMPLETE 2+V from 02/03/2024 FINDINGS: Stable alignment of total shoulder prosthesis. No abnormal surrounding bony lucencies. DATA REPOSITORY: RADIATION DOSE DELIVERED:
== END 2024-06-22 15:40 | disposition home or self-care (01) ==
LOC: DIORS 15:40
PROVIDERS: PCP Family Medicine; Visit Provider Student in an Organized Health Care Education/Training Program
DX: Z47.1 Aftercare following joint replacement surgery (principal); Z96.612 Presence of left artificial shoulder joint
CPT/HCPCS: 99213; 73030

== ENCOUNTER 2025-01-18 15:44 | Outpatient (CLI) | payer MEDICARE, SELFPAY ==
--- NOTE | 2025-01-18 09:45 | DI.RAD_ITS ---
Exam(s) XR SHOULDER LT COMPLETE 2+V EXAM: XR SHOULDER LT COMPLETE 2+V CLINICAL HISTORY: F/U LEFT RTSA. TECHNIQUE: 2D digital imaging was performed. Four images were obtained. Grashey, Y and axillary vie ws were obtained. 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 No fracture or dislocation. JOINTS: The orthopedic hardware is in good position. No evidence of hardware loosening. SOFT TISSUE: Normal. IMPRESSION: Stable left reverse total shoulder arthroplasty. DATA REPOSITORY: RADIATION DOSE DELIVERED:
--- NOTE | 2025-01-18 09:45 | DI.RAD_ITS ---
Exam(s) XR SHOULDER RT COMPLETE 2+V EXAM: XR SHOULDER RT COMPLETE 2+V CLINICAL HISTORY: RIGHT SHOULDER PAIN. TECHNIQUE: 2D digital imaging was performed. Two views. COMPARISON: CR XR SHOULDER LT COMPLETE 2+V from 01/18/2025 FINDINGS: BONES: No acute fracture is present. No bony destructive lesion is seen. Mild spurring at the greate r tuberosity. JOINTS: No dislocation present. Mild narrowing of the glenohumeral joint. Mild spurring at the goldie oid. AC joint is suboptimally profiled but shows some inferior spurring. Is also spurring at the un dersurface of the acromion. SOFT TISSUE: Normal. 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 DATA REPOSITORY: RADIATION DOSE DELIVERED:
== END 2025-01-18 15:45 | disposition home or self-care (01) ==
LOC: DIORS 15:44
PROVIDERS: PCP Family Medicine; Referring Provider Family Medicine; Visit Provider Student in an Organized Health Care Education/Training Program
DX: M19.011 Primary osteoarthritis, right shoulder; J43.9 Emphysema, unspecified; N28.9 Disorder of kidney and ureter, unspecified; M19.012 Primary osteoarthritis, left shoulder
CPT/HCPCS: 99214; 73030